=== PATIENT | male | born 1945 | race Caucasian/White ===

== ENCOUNTER 2017-10-07 18:27 | Inpatient (IN) | payer MEDICARE, OTHER ==
[~2017-10-07 18:27] MED LIST: ISOVUE-370 76%-LOCM 1 ML ONE
[2017-10-07 18:43] LABS: #Eosinphils 0.3 thou/uL (0.0-0.7); #Lymphocytes 2.5 thou/uL (1.20-3.40); #Monocytes 1.1 thou/uL (0.11-0.59); %Basophils 0.4 % (0.0-1.0); %Eosinophils 2.6 % (0.0-10.0); %Lymphocytes 22.6 % (21.0-51.0); %Monocytes 9.6 % (0.0-10.0); %Neutrophils 64.7 % (42.0-75.0); Mean Corpuscular HGB CONC 34.1 g/dL (32.0-36.0); Mean Corpuscular Hemoglobin 32.2 pg (27.0-31.0); Mean Corpuscular Volume 94.5 fl (80.0-94.0); Mean Platelet Volume 8.1 fL (7.4-10.4); Platelet Count 245 thou/uL (130-400); RBC Distribution Width 11.9 % (11.5-14.5); Red Blood Cell (RBC) Count 4.65 mill/uL (4.70-6.10); White Blood Cell (WBC) Count 10.9 thou/uL (4.8-10.8)
[2017-10-07 18:50] LABS: INR-International Normal Ratio 1.1; PTT 32.5 SEC (22.9-36.1); Prothrombin Time 14.5 SEC (12.0-14.7)
[2017-10-07] MEDS ORDERED: Labetalol HCl 100 MG/20 ML VIAL ONE (18:52)
[2017-10-07 18:56] LABS: ALT (SGPT) 24 U/L (8-55); AST (SGOT) 22 U/L (5-34); Albumin 3.9 g/dL (3.4-4.8); Alkaline Phosphatase 72 U/L (40-150); Anion Gap 12 mmol/L (10-20); BUN (Urea Nitrogen) 20 mg/dL (8.4-25.7); Bilirubin, Total 0.3 mg/dL (0.2-1.2); Calc. Creatinine Clearance 0 mL/min (70-130); Calcium 9.2 mg/dL (7.8-10.44); Carbon Dioxide 26 mmol/L (23-31); Chloride 102 mmol/L (98-107); Estimated GFR-MDRD 66; Globulin 3.3 g/dL (2.4-3.5); Glucose 150 mg/dL (83-110); Protein, Total 7.2 g/dL (5.8-8.1); Sodium 136 mmol/L (136-145)
[2017-10-07 18:59] LABS: CKMB 2.9 ng/mL (0-6.6); Troponin I Less than 0.010 ng/mL (< 0.028)
--- NOTE | 2017-10-07 19:26 | CT ---
CT OF BRAIN PERFORMED WITHOUT CONTRAST ENHANCEMENT: 10/07/17 HISTORY: Left sided weakness. COMPARISON: None. There is moderate ventricular prominence which is greater than the degree of sulcal prominence and ra ises the possibility of normal pressure hydrocephalus. I do not see any signs of acute infarct. No bl eed or mass effect. The mastoid air cells and visualized sinuses are clear. IMPRESSION: 1. No acute intracranial abnormalities. 2. Findings raise the possibility of normal pressure hydrocephalus. Findings were telephoned to Dr. Pozo at 1840 hours. POS: [facility]
--- NOTE | 2017-10-07 20:19 | CT ---
CT ANGIO OF HEAD AND NECK PERFORMED WITH INTRAVENOUS CONTRAST ENHANCEMENT WITH 3D RECONSTRUCTIONS: 10/07/17 HISTORY: Left sided weakness. Lung apices show some emphysematous change. No infiltrative process. Thyroid gland is normal in size. No significant jugular chain adenopathy. Parotid and submandibular glands are normal. Parapharyngeal spaces are clear. The CT angio of the neck shows a focal area of soft plaque formation in the more distal left common c arotid artery. This narrows the common carotid artery by approximately 50% in this segment. The plaqu e extends over approximately 1.7 cm segment of the left common carotid artery. There is a separate or igin of the left common carotid artery from the aortic arch. There is less than 50% narrowing by NASC ET criteria of the left internal carotid artery at its origin with calcified plaque formation. Some very mild narrowing of the external carotid arteries seen. On the right side, the common internal and external carotid arteries show no areas of any significant stenosis. There is calcified plaque at the origin of the internal carotid artery. Vertebral artery is fairly codominant. The right is slightly larger than the left. There appears to b e some mild narrowing near the origin of the left vertebral artery. Intracranially, I do not see any signs of any aneurysm or any intraluminal thrombus in the A1 or M1 s egments. Filling of the peripheral vessels is fairly symmetric. IMPRESSION: 1. Soft plaque formation in the left common carotid artery in its mid to distal portion over stephy roximately a 1.7 cm segment with some mild narrowing of approximately 50%. There is less than 50% nikolas rowing in the left internal carotid artery at its origin by NASCET criteria. 2. No significant stenosis of the right internal carotid artery. 3. No evidence of any thrombus in the A1 or M1 segments. 4. Findings telephoned to Dr. Pozo at 1900 hours. POS: [facility]
[2017-10-07 21:39] VITALS: BMI 29.7
--- NOTE | 2017-10-07 21:47 | PDOC.FPRHP ---
- History of Present Illness Chief Complaint: left sided weakness, difficulty walking, high blood pressure History of Present Illness: 72 yo M w/ PMH of HTN and cad presented via ems for evaluation of left sided weakness. Pt reports symptoms started around noon today and persisted until approx 6pm, since that time he reports the symptoms have improved. Symptoms include left lower extremity weakness, difficulty walking and left hand weakness. He Denies cp, sob, nvdc, numbness, tingling, headache, changes in vision, slurred speech and facial droop. He was prescribed an YIN-i for his HTN ; however, family reports he has not been taking his medications. He reports his BP normally ranges in the 140s systolic, but admits his home BP cuff has not been working. Importantly, family notes that he has had the LLE/abnormal gait findings for approx 2 months, but more noticeable over last 1.5 weeks. Additionally, the family notes that he has reportedly made inappropriate comments at times, which is not his usual self and seems more forgetful. CT of the brain done in the ED was negative for any intracranial bleed and the CTA head and neck was also negative, but here were findings concerning for possible normal pressure hydrocephalus. BP was found to be elevated @ 244/88 and responded to IV labetolol. Pt reports social alcohol use and denies drug use. PCP: Rosemary in [place], [place]- [facility] call admission Code status: Full code ED Course: labetolol IVP 20mg X2 - Allergies/Adverse Reactions Allergies Allergy/AdvReac Type Severity Reaction Status Date / Time Penicillins Allergy Rash Verified 10/07/17 21:47 Sulfa (Sulfonamide Allergy Rash Verified 10/07/17 21:47 Antibiotics) - Home Medications Medication Instructions Recorded Confirmed Type Aspirin [Aspirin Chewable] 81 mg PO DAILY 10/07/17 10/07/17 History Ezetimibe/Simvastatin [Vytorin] 0.5 tablet PO Q2DAYS 10/07/17 10/07/17 History Omeprazole 20 mg PO HS 10/07/17 10/07/17 History Ramipril [Altace] 10 mg PO DAILY 10/07/17 10/07/17 History - History PMHx: HTN, CAD, HLD, prediabetes PSHx: Coronary stent placement 2003, tonsillectomy FHx: Brother - [place] at 50. Social: Previous smoker 30 pack year history, social alcohol, denies drug use - Review of Systems General: denies: fever/chills, weight/appetite/sleep changes, fatigue Eyes: denies: eye pain, vision changes ENT: reports: nasal congestion. denies: rhinorrhea Respiratory: reports: congestion. denies: cough, shortness of breath, exercise intolerance Cardiovascular: reports: edema. denies: chest pain, palpitation Gastrointestinal: denies: nausea, vomiting, diarrhea, constipation, abdominal pain, GI bleeding Genitourinary: reports: other (urgency). denies: incontinence, dysuria Skin: denies: rashes, jaundice Musculoskeletal: denies: pain, tenderness, stiffness, arthritis/arthralgias Neurological: reports: weakness. denies: numbness, syncope, seizure - Vital signs BP: 245/88 HR: 78 RR: 18 Tmax: 98.1 Pox: 99% on RA Wt: 92Kg - Physical Exam Constitutional: NAD, awake, alert and oriented, well developed HEENT: normocephalic and atraumatic, PERRLA, EOMI, no scleral icterus, grossly normal vision, TM's clear and intact, grossly normal hearing, MMM, oropharynx clear Neck: supple, trachea midline, no LAD, no JVD, no thyromegaly, no bruits Chest: no-tender to palpation, no lesions Heart: RRR, normal S1/S2, no murmurs/rubs/gallops, pulses present, other (1+ pitting edema) Lungs: CTAB, no respiratory distress, good air movement, no rales/rhonchi, no wheezing, no retractions Abdomen: soft, non-tender, bowel sounds present, no masses/distention Musculoskeletal: normal structure, normal tone Neurological: CN II-XII intact, normal sensation, DTRs 2+, other (Strength b/l UE and LE 5/5 throughout. Rapid alternating movements abnormal on the left. Gait is unsteady, wide based, with short steps/strides) Skin: no rash/lesions, capillary refill <2 seconds, no jaundice Heme/Lymphatic: no purpura, no petechia Psychiatric: other FMR H&P: Results - Labs Result Diagrams: 10/08/17 04:14 10/08/17 04:14 Lab results: WBC 10.9 thou/uL (4.8-10.8) H 10/07/17 18:31 Hgb 15.0 g/dL (14.0-18.0) 10/07/17 18: Hct 43.9 % (42.0-52.0) 10/07/17 18: MCV 94.5 fl (80.0-94.0) H 10/07/17 18: Plt Count 245 thou/uL (130-400) 10/07/17 18: Neutrophils % 64.7 % (42.0-75.0) 10/07/17 18: Sodium 136 mmol/L (136-145) 10/07/17 18: Potassium 4.0 mmol/L (3.5-5.1) 10/07/17: Chloride 102 mmol/L (98-107) 10/07/17: Carbon Dioxide 26 mmol/L (23-31) 10/07/17 18: BUN 20 mg/dL (8.4-25.7) 10/07/17: Creatinine 1.09 mg/dL (0.6-1.3) 10/07/17: Glucose 150 mg/dL (83-110) H 10/07/17 18: Calcium 9.2 mg/dL (7.8-10.44) 10/07/17: Total Bilirubin 0.3 mg/dL (0.2-1.2) 10/07/17 18: AST 22 U/L (5-34) 10/07/17: ALT 24 U/L (8-55) 10/07/17: Alkaline Phosphatase 72 U/L (40-150) 10/07/17 18: Creatine Kinase 130 U/L (30-200) 10/07/17 18: CK-MB (CK-2) 2.9 ng/mL (0-6.6) 10/07/17 B-Natriuretic Peptide 57.5 pg/mL (0-100) 10/07/17 18: Serum Total Protein 7.2 g/dL (5.8-8.1) 10/07/17: Albumin 3.9 g/dL (3.4-4.8) 05/09/18 18:31 - EKG Interpretation EKG: NSR, nonspecific ST changes - Radiology Interpretation CT scan - head Status: report reviewed by me (No evidence for acute intracranial process, concern for normal pressure hydrocephalus. CTA showed no embolic/ischemic areas. ) FMR H&P: A/P - Problem List (1) TIA (transient ischemic attack) Current Visit: Yes Status: Acute (2) Hypertension Current Visit: Yes Status: Acute Priority: High Code(s): I10 - ESSENTIAL ( PRIMARY) HYPERTENSION Qualifiers: Hypertension type: unspecified Qualified Code(s): I10 - Essential (primary ) hypertension (3) Normal pressure hydrocephalus Current Visit: Yes Status: Suspected Code(s): G91.2 - (IDIOPATHIC) NORMAL PRESSURE HYDROCEPHALUS (4) CAD (coronary artery disease) Current Visit: Yes Status: Chronic Code(s): I25.10 - ATHSCL HEART DISEASE OF [place] CORONARY ARTERY W/O ANG PCTRS Qualifiers: Associated angina: without angina - Plan 1) TIA: vs acute cerebrovascular syndrome vs htn emergency. Pt to be admitted to the [facility]. Pt had new focal deficit of the left hand; however, ct angio and ct were negative for occlusion or acute intracranial bleed. BP in the ER was highest recorded value of 245 systolic and 104 diastolic. Pt BP was reduced by 5 -15% MAP with IV labetolol. We will cont IV labetalol to be given with systolic BP >200. Overall clinically, pt has 5/5 strength in b/l upper and lower extremities, nonetheless we will continue neuro checks q4hr, consult pt/ot/ speech for eval/treat. Bedside dysphagia screen. Asa, statin. Check FLP, Mag, Phos, TSH. AM CBC and BMP. 2)HTN: Chronic and pt medically non-compliant. Unsure of pts baseline BP although he reports h/o 140s systolic. For now we will allow for some permissive htn and slowly taper pts MAP. Labetalol prn for systolic bp >200. Hold home medications for now. 3)CAD: s/p stent in 2003. Trend troponins (initial trop negative). Daily statin. 4)Concern for normal pressure hydrocephalus: pt ct finding s are concerning for NPH. He does have gait instability and some recent cognitive changes per the family. He reports some urinary urgency, but denies incontinence. The gait disturbance have been present for approx 2 months. Neuro has been consulted, appreciate recommendations. 5)PPX: SCDs, Pepcid for DVT and GI ppx, respectively 6) Code status: Full code. Spoke with pt regarding code status, wishes to be full code. Disposition/LOS: >/= 2 days. Stable. FMR H&P: Upper Level - Pertinent history 72 yo CM with PMHx HTN, HLD, CAD s/p stent x1, and likely medication noncompliance presented to ED via EMS for L sided weakness. For 5-6 hours [employer]CR[employer], pt endorsed noticing that his left foot was dragging when he walked. He states this was a new finding, although pts brother says he has been doing this at least the past 3 months. Pt also endorsed new L hand weakness with difficulty holding objects or opening his hand. BP in ED was 242/109. Denied other symptoms except chest congestion and allergic sequelae. Denied dizziness, blurry vision, or facial droop. Pt takes meds for BP although has no current working cuff and apparently has months meds sitting on his kitchen table just discovered by his brother. Pt endorses BPs typically 140-150s although not checking currently. Pt lives alone. PCP is in [place] Dr. Riley. Brain CT showed enlarged ventricles with suggestion of NPH. Pts family endorse changing in mentation with memory issues, overall cognitive slowing, and recent inappropriate sexual remarks that seem out of character. Pt denies urinary complaints although had sudden urge to void requiring us to pause the exam. Pt denies having overall weakness or recent changes in walking except for today, which does not agree with familys story. - Pertinent findings Gen: alert, oriented x4, NAD CV: RRR, no m/r/g Lungs: CTAB, no rales/rhonchi Abd: obese, NT, mildly distended with tympanitic percussion suggesting gas- filled pattern; no rebound/guarding Ext: 1+ BLE edema distal to knees MSK: normal structure and tone Neuro: normal patellar reflexes, normal sensation, decreased rapid-alternating movements on L, CN 2-12 intact, strength 5/5 bilateral extremities, slowed gait with small steps taken and unsteady when turning 180 degrees; pt had great difficulty pushing himself up in bed which appears to reflect overall decrease in strength although muscle strength testing normal; failed Romberg bilaterally as unable to stand on either foot even with eyes open - Plan Date/Time: 10/07/172131 1. Acute cerebrovascular syndrome vs HTN emergency. Diagnostic challenge as slightly different approach to treatment. After further discussion with family, dragging of L leg may be more chronic although possible became more pronounced today. L hand deficit appears new finding and resolved soon after arriving to ED. Unclear whether resolved after treating severely elevated BP (249/109) or spontaneously. Negative head/neck CTA for stroke findings. Dr. Alcala consulted from ED who did not recommend Tpa due to uncontrolled BPs as well as minimal NIH score. Recommended treating BP with IV labetalol only rather than drip in CCU. Will treat more as HTN emergency with only sign of end-organ damage the acute neuro findings that are resolving. Goal BP is MAP 20-25% < initial MAP; around 190-200 for 24 hours. Await neurology recs about MRI. Repeat neuro exam this evening. PT/OT/speech consult. ASA, statin. Check FLP, TSH, trops. Neck CTA showed no treatable stenosis. Admit to IMCU for expected 1-2 day stay. 2. HTN. Appears noncompliant after discussion with family. May be closer to baseline than initially suspected. Slow decrease in BP over time. Restart home med after 24 hours. 3. Hydrocephalus. Suggested from brain CT. NPH could be at play. After hx from pts family, he appears to have had gait issues for a few months at least. Also felt to have semi-recent cognitive impairment including inappropriate sexual remarks and decreased executive function. Denies urinary complaints but may have urinary urgency components based on need to urinate suddenly in room during exam. Dr. Alcala has been consulted so appreciate his opinion on the matter. May be better served by outpt workup. MRI more specific but defer to neuro if desired. PT/OT eval/tx. 4. HLD. Check FLP. May expose noncompliance. Pt has difficulty taking statins and has been tried on multiple agents. Endorses Vytorin as most recent although Crestor also mentioned. 5. CAD s/p stent x1. Continue ASA. YIN-I restarted in 24 hours. Unclear if beta- basil used. Await accurate med list from family. No chest pain. 6. Medication noncompliance. See above. Pt endorses compliance but lives alone and family discovered stockpile of unused meds at home today. May need HH. Further discussions needed. I, Riley Vicente, have evaluated this patient and agree with findings/plan as outlined by internet marketing assistant resident. Pertinent changes/additions are listed here. Attending Addendum - Attending Addendum Date/Time: 10/07/172142 I personally evaluated the patient and discussed the management with Dr. Dougherty and Dr. Vicente I agree with the History, Examination, Assessment and Plan documented above with any addition or exceptions noted below. 72 yo male with history of CAD presents for evaluation of left foot drop. Patient reports recent left foot drop and hand clumsiness. Family members in room note subacute issues with gait, cognition, and foot drop but more concern with findings today. Patient reports weakness as well. On exam strength 5/5 but difficulty with rapid alternating movement. Difficulty with turning and has wide base gait. Labs reviewed. CT negative for thrombotic or hemorrhagic stroke. Will admit to stroke unit for rule out. Rule out CVA: CTA negative for significant ischemic or hemorrhagic CVA. Continue to monitor. New findings have now resolved. Likely TIA at this time. HTN Emergency: Will decrease BP by 20%. Patient has not been taking medication at home due to subacute neurological issues. Restart home meds in AM. Due to risk of possible CVA will treat with prn medications overnight. Normal pressure hydrocephalus: Likely etiology of presenting symptoms. Neurology consulted from ER. Will need outpatient follow up. Consider MRI in AM. Restart home meds and adjust as needed. Evaluate primary and secondary prevention. Glenn
[2017-10-07] MEDS ORDERED: HYDROcodone/Acetaminophen 5/325 mg Tablet PO PRN ×2 (21:48)
[2017-10-07] MEDS ORDERED: Ondansetron HCl/PF 4 MG/2 ML Vial IVP PRN (23:25)
[2017-10-07] MEDS ORDERED: Calcium Carbonate 500 MG ChewTAB PO PRN (23:25)
[2017-10-07] MEDS ORDERED: Acetaminophen 325 MG TAB PO PRN (23:25)
[2017-10-07] MEDS ORDERED: Aspirin 81 mg Enteric Coated Tablet PO SCH (23:45)
[2017-10-07 23:53] LABS: Magnesium 2.1 mg/dL (1.6-2.6); Phosphorus 2.5 mg/dL (2.3-4.7)
[2017-10-08 01:06] LABS: Troponin I 0.022 ng/mL (< 0.028)
[2017-10-08] MEDS: Labetalol HCl 100 MG/20 ML VIAL SLOW IVP PRN (02:12)
[2017-10-08] MEDS ORDERED: Calcium Carbonate 500 MG ChewTAB PO PRN (04:29)
[2017-10-08 05:09] LABS: #Basophils 0.1 thou/uL (0.0-0.2); #Eosinphils 0.3 thou/uL (0.0-0.7); #Lymphocytes 2.2 thou/uL (1.20-3.40); #Monocytes 1.5 thou/uL (0.11-0.59); #Neutrophils 7.6 thou/uL (1.40-6.50); %Basophils 0.9 % (0.0-1.0); %Eosinophils 2.9 % (0.0-10.0); %Lymphocytes 18.7 % (21.0-51.0); %Neutrophils 64.6 % (42.0-75.0); Hemoglobin 14.8 g/dL (14.0-18.0); Mean Corpuscular HGB CONC 33.4 g/dL (32.0-36.0); Mean Corpuscular Hemoglobin 31.9 pg (27.0-31.0); Mean Corpuscular Volume 95.6 fl (80.0-94.0); Mean Platelet Volume 8.5 fL (7.4-10.4); Platelet Count 244 thou/uL (130-400); RBC Distribution Width 12.1 % (11.5-14.5); Red Blood Cell (RBC) Count 4.63 mill/uL (4.70-6.10); White Blood Cell (WBC) Count 11.7 thou/uL (4.8-10.8)
[2017-10-08 05:27] LABS: Anion Gap 10 mmol/L (10-20); BUN (Urea Nitrogen) 16 mg/dL (8.4-25.7); Calc. Creatinine Clearance 86 mL/min (70-130); Calcium 9.6 mg/dL (7.8-10.44); Carbon Dioxide 28 mmol/L (23-31); Cardiac Risk 5.5 (Less than 4.5); Chloride 103 mmol/L (98-107); Cholesterol 191 mg/dl (< 200 Desired); Estimated GFR-MDRD 74; Glucose 112 mg/dL (83-110); HDL Cholesterol 35 mg/dL (>60 Neg Risk); LDL Cholesterol, Calculated 129 mg/dL; Potassium 3.7 mmol/L (3.5-5.1); Sodium 137 mmol/L (136-145); Triglycerides 133 mg/dL (Less than 150)
--- NOTE | 2017-10-08 06:10 | PDOC.FM ---
- Subjective Subjective: Mr. Sullivan is a seen at bedside this morning. He states that he is doing well. He states that both the left UE numbness and tingling have resolved and the left lower extremity weakness feels like it has improved. He denies any acute events overnight. He denies any fever, chills, vision changes, headache, vision changes, chest pain, dyspnea. - Objective MAR Reviewed: Yes Vital Signs & Weight: Vital Signs (12 hours) Temp Pulse Resp BP Pulse Ox 10/08/17 05:09 168/74 H 10/08/17 04:19 188/77 H 10/08/17 03:50 98.6 F 59 L 18 186/81 H 99 10/08/17 03:05 188/87 H 10/08/17 02:12 61 10/08/17 02:09 61 200/82 H 10/08/17 01:23 184/77 H 10/08/17 00:57 202/79 H 10/07/17 23:57 98.2 F 62 19 10/07/17 23:49 98.2 F 62 19 99 10/07/17 23:15 189/90 H I&O: 10/06/17 10/07/17 10/08/17 06:59 06:59 06:59 Output Total 720 Balance -720 Result Diagrams: 10/08/17 04:14 10/08/17 04:14 <Bridger Vela - Last Filed: 10/08/17 06:43> - Objective Vital Signs & Weight: Vital Signs (12 hours) Temp Pulse Resp BP Pulse Ox 10/08/17 07:54 98.3 F 65 20 174/78 H 99 10/08/17 05:09 168/74 H 10/08/17 04:19 188/77 H 10/08/17 03:50 98.6 F 59 L 18 186/81 H 99 10/08/17 03:05 188/87 H 10/08/17 02:12 61 10/08/17 02:09 61 200/82 H 10/08/17 01:23 184/77 H 10/08/17 00:57 202/79 H 10/07/17 23:57 98.2 F 62 19 10/07/17 23:49 98.2 F 62 19 99 10/07/17 23:15 189/90 H I&O: 10/07/17 10/08/17 10/09/17 06:59 06:59 06:59 Output Total 720 Balance -720 Result Diagrams: 10/08/17 04:14 10/08/17 04:14 <LynnPrem Sravani - Last Filed: 10/08/17 10:37> Phys Exam - Physical Examination Constitutional: NAD HEENT: moist MMs, sclera anicteric Neck: no JVD, supple, full ROM Respiratory: no wheezing, no rales, no rhonchi, clear to auscultation bilateral Cardiovascular: RRR, no significant murmur Gastrointestinal: soft, non-tender, no distention, positive bowel sounds Musculoskeletal: no edema, pulses present Neurological: non-focal, normal sensation, moves all 4 limbs Psychiatric: normal affect, A&O x 3 Skin: no rash, normal turgor <Bridger Vela - Last Filed: 10/08/17 06:43> Dx/Plan (1) Hypertension Code(s): I10 - ESSENTIAL (PRIMARY) HYPERTENSION Status: Acute QualifierTitle: Hypertension type: unspecified Qualified Code(s): I10 - Essential (primary) hypertension (2) TIA (transient ischemic attack) Status: Acute (3) CAD (coronary artery disease) Code(s): I25.10 - ATHSCL HEART DISEASE OF [place] CORONARY ARTERY W/O ANG PCTRS Status: Chronic QualifierTitle: Associated angina: without angina (4) Normal pressure hydrocephalus Code(s): G91.2 - (IDIOPATHIC) NORMAL PRESSURE HYDROCEPHALUS Status: Suspected - Plan Plan: 1) TIA: - vs acute cerebrovascular syndrome vs htn emergency - Neuro consulted in ED, appreciate recs - Neuro recommended against TPA in ED due to elevated pressures and low NIH scale - Component of history makes it appears that some symptoms are chronic - New left UE weakness resolved prior to arrival in the ED - Allowing for permissive HTN and treating BPs with IV labetalol at this time. - Neuro to decide if patient should have brain MRI - Continue ASA, statin, neuro checks, pt/ot/speech 2)HTN: - Chronic and pt medically non-compliant. Unsure of pts baseline BP although he reports h/o 140s systolic. For now we will allow for some permissive htn and slowly taper pts MAP. Labetalol prn for systolic bp >200. Hold home medications for now. (3) CAD - s/p stent in 2003. Troponins negative - Continue statin 4)Concern for normal pressure hydrocephalus: - CT findings are concerning for NPH. He does have gait instability and some recent cognitive changes per the family. He reports some urinary urgency, but denies incontinence. The gait disturbance have been present for approx 2 months. - Neuro has been consulted, appreciate recommendations. <Bridger Vela - Last Filed: 10/08/17 06:43> Attending Addendum - Attending Addendum Date/Time: 10/08/17 0943 I personally evaluated the patient and discussed the management with Dr. Vela. I agree with the History, Examination, Assessment and Plan documented above with any addition or exceptions noted below. Patient reports continued improvement in LUE neurologic function. His BP continues to be elevated but still at our permissive HTN goal. Concern for TIA versus CVA versus HTN emergency (resolved). Neurology on board and appreciate their recs. We will be obtaining MRI today to further evaluate for permanent defect. We will initiate blood pressure control today with Coreg and Ramipril ( home med). There is also concern for possible NPH in this patient and will await neurology input as well as therapy services. Initiate statin therapy and anti platelet therapy. He should be stable for transfer from [facility] to Stroke unit at this time. <Prem Lynn - Last Filed: 10/08/17 10:37>
[2017-10-08 06:29] LABS: Troponin I 0.025 ng/mL (< 0.028)
[2017-10-08 07:58] LABS: CKMB 2.5 ng/mL (0-6.6); Troponin I 0.012 ng/mL (< 0.028)
[2017-10-08] MEDS: Famotidine 20 MG TAB PO SCH ×2 (09:00→20:46)
[2017-10-08] MEDS: Aspirin 81 mg Enteric Coated Tablet PO SCH (09:01)
[2017-10-08] MEDS ORDERED: Gadobenate Dimeglumine 529 MG/1 ML (20ML VIAL) ONE (11:13)
[2017-10-08] MEDS: Lorazepam 0.5 MG TAB PO PRN (15:14)
--- NOTE | 2017-10-08 15:56 | MRI ---
MRI BRAIN WITH AND WITHOUT GADOLINIUM CONTRAST: HISTORY: Left-sided weakness. TIA. FINDINGS: There is no evidence of acute intracranial hemorrhage or infarct. No mass effect, shift of midline s tructures, or abnormal areas of contrast enhancement. Chronic ischemic small vessel disease is appar ent at the shannan and periventricular white matter. Ventricles are diffusely dilated in proportion to the degree of peripheral atrophy. IMPRESSION: 1. Communicating hydrocephalus. Clinical correlation regarding other signs and symptoms of normal-p ressure hydrocephalus is required. 2. No other acute intracranial abnormalities are demonstrated. POS: [facility]
[2017-10-08] MEDS: Carvedilol 3.125 MG TAB PO SCH (16:40)
[2017-10-08] MEDS: Atorvastatin Calcium 40 MG TAB PO SCH (20:46)
--- NOTE | 2017-10-09 01:53 | CON ---
DATE OF CONSULTATION: 10/08/2017 REFERRING PROVIDER: Bridger Vela MD REASON FOR CONSULTATION: Gait imbalance, questionable NPH. HISTORY OF PRESENT ILLNESS: Mr. Sullivan is a pleasant 72-year-old male who has been concer silvana for evaluation of gait imbalance difficulty and rule out NPH. Apparently, the patient had presen maria guadalupe on yesterday after he started having left upper and lower extremity weakness along with numbness and tingling on the left side. On arrival to the emergency room, his blood pressure was noted to be significantly elevated. His symptoms did resolve after coming to the emergency room. He had a CT he ad without contrast and MRI of brain done today, which showed no acute intracranial abnormality. It did show diffuse enlargement of the ventricles on both sides worrisome for NPH. On further questioni ng with the patient, he currently denies any difficulty with walking, stooped posture, shuffling gait , difficulty with memory, or difficulty with bladder control. However, after discussion with the [facility], it is noted the patient's brother had mentioned that he has been having difficulty w ith his walking and balance over the past few months. This has gradually gotten worse over time. Th ey have also noticed that his cognitive abilities are impaired. He tends to be hypersexual at times and sometimes he thinks that this does not make any sense. PAST MEDICAL HISTORY: Significant for hypertension, coronary artery disease, hyperlipidemia, diabete s. PAST SURGICAL HISTORY: Significant for coronary artery stent placement, tonsillectomy. SOCIAL HISTORY: He reports of alcohol use on social occasions. He also has a history of smoking in the past. He denies illicit drug use. CURRENT MEDICATIONS: Please review MAR. ALLERGIES: PENICILLIN and SULFA DRUGS. REVIEW OF SYSTEMS: As mentioned, which was negative. PHYSICAL EXAMINATION: VITAL SIGNS: Blood pressure 184/95, pulse of 64, temperature of 97.9, respirations of 20, O2 sats of 97% on room air. GENERAL: A well-developed, well-nourished male, in no apparent distress. RESPIRATORY: Clear to auscultation bilaterally. CARDIOVASCULAR: Regular rate and rhythm. NEUROLOGIC: Mental status: The patient is awake, alert, oriented x3. Speech and language: Fluent speech. Cranial nerves: Pupils are 3 mm and reactive. Visual rosado are intact. Extraocular muscl es are intact. No nystagmus noted. Face is symmetric. Tongue and uvula midline. Motor exam showed normal tone and bulk with 5/5 strength in both upper extremities and both lower extremities. Sensor y: Sensation is intact and symmetric. Babinski: Plantar responses flexion bilaterally. Coordinati on intact to bjorco-rnpt-vauiqa and finger tapping bilaterally. LABORATORY DATA: Reviewed, which included CBC, coag panel, CMP, lipid profile, which is significant for WBC of 11.7. Total cholesterol of 191, LDL of 129, HDL of 35, and triglycerides of 133, otherwis e unremarkable. IMAGING STUDIES: MRI of brain without contrast was reviewed, which did show diffuse enlargement of b oth ventricles. IMPRESSION: Gait imbalance difficulty, likely it could be related to normal pressure hydrocephalus. PLAN: Mr. Sullivan is a pleasant 72-year-old male who presented with initial onset of left- sided weakness, which has now improved. MRI did show no acute abnormality. It did show diffusely en larged ventricles suggestive of NPH. I have discussed with the patient and explained that the way to diagnose NPH is by doing a high volume lumbar puncture, which is being monitored by physical therapy before and after the lumbar puncture. I explained that if he does have NPH, then the only available treatment is ventriculoperitoneal shunt placement. At this time, I would recommend obtaining a lumb ar puncture. This lumbar puncture has to be done in conjunction with the physical therapy and is to evaluate the patient before and after the lumbar puncture to see if there is any improvement in the g ait and balance after undergoing high-volume lumbar puncture; if he does have abnormality on high-vol ume lumbar puncture, then he will benefit from evaluation by neurosurgery for their recommendations.
[2017-10-09] MEDS ORDERED: hydrALAZINE 20 MG/ML VIAL SLOW IVP PRN (02:56)
[2017-10-09 04:59] LABS: #Basophils 0.1 thou/uL (0.0-0.2); #Eosinphils 0.4 thou/uL (0.0-0.7); #Lymphocytes 2.3 thou/uL (1.20-3.40); #Neutrophils 6.4 thou/uL (1.40-6.50); %Basophils 0.6 % (0.0-1.0); %Lymphocytes 22.3 % (21.0-51.0); %Monocytes 10.1 % (0.0-10.0); Hemoglobin 14.8 g/dL (14.0-18.0); Mean Corpuscular HGB CONC 33.6 g/dL (32.0-36.0); Mean Corpuscular Hemoglobin 31.8 pg (27.0-31.0); Mean Corpuscular Volume 94.7 fl (80.0-94.0); Mean Platelet Volume 7.8 fL (7.4-10.4); Platelet Count 239 thou/uL (130-400); RBC Distribution Width 12.1 % (11.5-14.5); Red Blood Cell (RBC) Count 4.65 mill/uL (4.70-6.10); White Blood Cell (WBC) Count 10.1 thou/uL (4.8-10.8)
[2017-10-09 05:18] LABS: Anion Gap 12 mmol/L (10-20); BUN (Urea Nitrogen) 16 mg/dL (8.4-25.7); Calc. Creatinine Clearance 83 mL/min (70-130); Calcium 9.6 mg/dL (7.8-10.44); Carbon Dioxide 27 mmol/L (23-31); Chloride 102 mmol/L (98-107); Estimated GFR-MDRD 72; Glucose 107 mg/dL (83-110); Potassium 3.9 mmol/L (3.5-5.1); Sodium 137 mmol/L (136-145)
--- NOTE | 2017-10-09 07:00 | PDOC.FM ---
- Subjective Subjective: Kenneth Sullivan seen at bedside this morning. Last night, he had a fall when ambulating, fell backwards and landed on his buttocks, no head trauma. He also had urinary incontinence at that time. He denies any issues this morning. Denies headache, weakness, focal deficits, chest pain, dyspnea. - Objective MAR Reviewed: Yes Vital Signs & Weight: Vital Signs (12 hours) Temp Pulse Resp BP Pulse Ox 10/09/17 00:00 98.3 F 58 L 16 161/79 H 95 10/08/17 22:40 98.0 F 60 16 185/86 H 95 10/08/17 20:00 97.9 F 64 16 97 10/08/17 19:20 97.9 F 64 16 148/86 H 97 Weight Admit Weight 91.172 kg Weight 91.444 kg I&O: 10/07/17 10/08/17 10/09/17 06:59 06:59 06:59 Intake Total 1300 Output Total 720 750 Balance -720 550 Result Diagrams: 10/09/17 04:32 10/09/17 04:32 <Bridger Vela - Last Filed: 10/09/17 08:24> - Objective Vital Signs & Weight: Vital Signs (12 hours) Temp Pulse Resp BP Pulse Ox 10/09/17 08:00 98.4 F 81 18 95 10/09/17 07:00 98.4 F 81 18 179/102 H 94 L 10/09/17 06:00 98.0 F 62 18 174/86 H 97 10/09/17 04:00 97.9 F 64 18 175/83 H 97 10/09/17 00:00 98.3 F 58 L 16 161/79 H 95 10/08/17 22:40 98.0 F 60 16 185/86 H 95 Weight Admit Weight 91.172 kg Weight 91.444 kg I&O: 10/08/17 10/09/17 10/10/17 06:59 06:59 06:59 Intake Total 1600 Output Total 720 1400 Balance -720 200 Result Diagrams: 10/09/17 04:32 10/09/17 04:32 <Prem Lynn - Last Filed: 10/09/17 09:55> Phys Exam - Physical Examination Constitutional: NAD HEENT: moist MMs, sclera anicteric Neck: no JVD, supple, full ROM Respiratory: no wheezing, no rales, no rhonchi, clear to auscultation bilateral Cardiovascular: RRR, no significant murmur Gastrointestinal: soft, non-tender, no distention Musculoskeletal: no edema, pulses present Neurological: non-focal, normal sensation, moves all 4 limbs slow, difficult with movement Psychiatric: normal affect, A&O x 3 Skin: no rash, normal turgor <Bridger Vela - Last Filed: 10/09/17 08:24> Dx/Plan (1) Hypertension Code(s): I10 - ESSENTIAL (PRIMARY) HYPERTENSION Status: Acute QualifierTitle: Hypertension type: unspecified Qualified Code(s): I10 - Essential (primary) hypertension (2) TIA (transient ischemic attack) Status: Acute (3) CAD (coronary artery disease) Code(s): I25.10 - ATHSCL HEART DISEASE OF [place] CORONARY ARTERY W/O ANG PCTRS Status: Chronic QualifierTitle: Associated angina: without angina (4) Normal pressure hydrocephalus Code(s): G91.2 - (IDIOPATHIC) NORMAL PRESSURE HYDROCEPHALUS Status: Suspected - Plan Plan: 1) Normal Pressure Hydrocephalus - MRI had findings suggestive of normal pressure hydrocephalus - Pt has gait instability, urinary urgency, and family notes cognitive. - Neuro consulted, appreciate recs - Recommended large volume LP (30-35cc) with PT eval prior to and immediately after LP 2) TIA: - vs acute cerebrovascular syndrome vs htn emergency - Neuro consulted in ED, appreciate recs - Neuro recommended against TPA in ED due to elevated pressures and low NIH scale - Component of history makes it appears that some symptoms are chronic - New left UE weakness resolved prior to arrival in the ED - Starting patient on home medications to control BPs - Continue ASA, statin, neuro checks, pt/ot/speech 3)HTN: - Continue home medications. 4) CAD - s/p stent in 2003. Troponins negative - Continue statin <Bridger Vela - Last Filed: 10/09/17 08:24> Attending Addendum - Attending Addendum Date/Time: 10/09/17 0953 I personally evaluated the patient and discussed the management with Dr. Vela. I agree with the History, Examination, Assessment and Plan documented above with any addition or exceptions noted below. Patient without complaint this morning. He had a fall and episode of incontinence overnight. Neurology has evaluated patient and agrees with diagnosis of NPH. We will be attempting therapeutic drainage of CSF this morning with re-eval by PT to see if there is noted improvement. This plan has been suggested by Neurology and has been discussed with the patient. If therapeutic, may need NSGY consult to discuss NATURAL FABRICATOR drain. Blood pressures improved , but will escalate therapy today. No evidence of CVA on MRI, so his symptoms were either related to HTN emergency or TIA, or possibly a rarer complication of NPH. <Prem Lynn - Last Filed: 10/09/17 09:55>
[2017-10-09] MEDS: Famotidine 20 MG TAB PO SCH ×2 (11:13→20:31)
[2017-10-09] MEDS: Ramipril 5 MG CAP PO SCH (11:13)
[2017-10-09] MEDS: Carvedilol 3.125 MG TAB PO SCH ×2 (11:13→16:25)
[2017-10-09] MEDS: Aspirin 81 mg Enteric Coated Tablet PO SCH (11:13)
--- NOTE | 2017-10-09 13:46 | PDOC.EVN ---
Event Note - Event Note Event Note: LUMBAR PUNCTURE PROCEDURE NOTE INDICATION: Normal Pressure Hydrocephalus PROCEDURE GEOTHERMAL POWERPLANT SUPERVISOR: René ATTENDING PHYSICIAN: Shane In Attendance: Yes CONSENT: Consent was obtained from Mr. Sullivan prior to the procedure. Indications, risks , and benefits were explained at length. PROCEDURE SUMMARY: A time-out was performed. My hands were washed immediately prior to the procedure. I wore a surgical cap, mask with protective eyewear, sterile gown and sterile gloves throughout the procedure. The patient was placed in the right lateral decubitus position with help from the nursing staff. The area was cleansed and draped in usual sterile fashion using betadine scrub. Anesthesia was achieved with 1% lidocaine. A 20-gauge 3.5-inch spinal needle was placed in the L3-L4 and L4-L5 lumbar interspace. Cerebral spinal fluid was not obtained. A sterile bandaid was placed over the puncture site. The patient had no immediate complications and tolerated the procedure well. Estimated blood loss was 2 mL.
--- NOTE | 2017-10-09 16:06 | RAD ---
FLUOROSCOPIC GUIDED LUMBAR PUNCTURE: History: Normal pressure hydrocephalus. FINDINGS: After explaining the procedure and answering all questions, the lower back was prepped and draped in the usual sterile fashion. Sterile technique, buffered local anesthesia, fluoroscopic guidance and a left posterolateral L2-3 approach were used to carefully advance a 20 gauge spinal needle through the thecal sac. A total volume of 32 cc clear CSF was collected and returned with the patient. Opening p ressure was estimated at 15 cm water. Patient tolerated the procedure well and was returned in unchanged condition. IMPRESSION: Technically successful high volume lumbar puncture fluid collection. POS: [facility]
[2017-10-09] MEDS: Carvedilol 6.25 MG TAB PO SCH (16:55)
[2017-10-09] MEDS ORDERED: Carvedilol 3.125 MG TAB PO SCH (17:00)
[2017-10-09] MEDS: Atorvastatin Calcium 40 MG TAB PO SCH (20:31)
[2017-10-09] MEDS: Labetalol HCl 100 MG/20 ML VIAL SLOW IVP PRN (21:48)
[2017-10-10 05:05] LABS: #Basophils 0.1 thou/uL (0.0-0.2); #Eosinphils 0.4 thou/uL (0.0-0.7); #Lymphocytes 3.1 thou/uL (1.20-3.40); #Neutrophils 5.9 thou/uL (1.40-6.50); %Basophils 0.9 % (0.0-1.0); %Eosinophils 3.6 % (0.0-10.0); %Lymphocytes 29.6 % (21.0-51.0); %Monocytes 9.8 % (0.0-10.0); %Neutrophils 56.1 % (42.0-75.0); Hemoglobin 14.6 g/dL (14.0-18.0); Mean Corpuscular HGB CONC 34.3 g/dL (32.0-36.0); Mean Corpuscular Hemoglobin 32.5 pg (27.0-31.0); Mean Corpuscular Volume 94.8 fl (80.0-94.0); Mean Platelet Volume 8.3 fL (7.4-10.4); Platelet Count 228 thou/uL (130-400); RBC Distribution Width 12.1 % (11.5-14.5); Red Blood Cell (RBC) Count 4.51 mill/uL (4.70-6.10); White Blood Cell (WBC) Count 10.4 thou/uL (4.8-10.8)
[2017-10-10 05:22] LABS: Anion Gap 11 mmol/L (10-20); BUN (Urea Nitrogen) 17 mg/dL (8.4-25.7); Calc. Creatinine Clearance 91 mL/min (70-130); Carbon Dioxide 26 mmol/L (23-31); Chloride 104 mmol/L (98-107); Estimated GFR-MDRD 80; Glucose 106 mg/dL (83-110); Potassium 3.9 mmol/L (3.5-5.1); Sodium 137 mmol/L (136-145)
--- NOTE | 2017-10-10 05:47 | PDOC.FM ---
- Subjective Subjective: Patient is doing well this AM. He reports his LE strength is improved, but again has experienced some LUE weakness onset yesterday afternoon aroun 3pm. LUE weakness has continued through the night. Yesterday, had high pressure LP done where 32ml of CSF was drained. PT done prior to LP was comparable to PT done after LP. Blood pressure quite high overnight averaging 200's SBP. Patient reports he is agreeable to PT with but is hesitant about any inpatient PT. - Objective MAR Reviewed: Yes Vital Signs & Weight: Vital Signs (12 hours) Temp Pulse Resp BP BP Pulse Ox 10/09/17 21:48 63 205/82 H 10/09/17 20:30 64 192/80 H 10/09/17 20:00 98.6 F 63 14 94 L 10/09/17 19:55 97.5 F L 64 16 192/80 H 94 L 10/09/17 18:10 98.3 F 61 18 190/81 H 97 Weight Admit Weight 91.172 kg Weight 91.444 kg I&O: 10/08/17 10/09/17 10/10/17 06:59 06:59 06:59 Intake Total 1600 440 Output Total 720 1400 Balance -720 200 440 Result Diagrams: 10/10/17 03:40 10/10/17 03:40 <Sabina Sales - Last Filed: 10/10/17 10:25> - Objective Vital Signs & Weight: Vital Signs (12 hours) Temp Pulse Resp BP BP Pulse Ox 10/10/17 09:47 181/75 H 10/10/17 08:44 206/105 H 10/10/17 08:43 71 206/105 H 10/10/17 08:00 98.2 F 71 16 10/10/17 07:58 98.2 F 71 16 199/99 H 97 10/10/17 05:46 97.2 F L 60 18 198/70 H 98 Weight Admit Weight 91.172 kg Weight 91.444 kg I&O: 10/09/17 10/10/17 10/11/17 06:59 06:59 06:59 Intake Total 1600 440 Output Total 1400 200 Balance 200 440 -200 Result Diagrams: 10/10/17 03:40 10/10/17 03:40 <Prem Lynn R - Last Filed: 10/10/17 10:50> Phys Exam - Physical Examination Constitutional: NAD HEENT: PERRLA, moist MMs Respiratory: no wheezing, no rales, clear to auscultation bilateral Cardiovascular: RRR, no significant murmur Gastrointestinal: soft, non-tender Musculoskeletal: no edema, pulses present LE strength 5/5 bilaterally, RUE 5/5, LUE 4/5 log chain feeder strength but 5/5 biceps Psychiatric: normal affect, A&O x 3 Skin: cap refill <2 seconds <Sabina Sales - Last Filed: 10/10/17 10:25> Dx/Plan (1) Hypertension Code(s): I10 - ESSENTIAL (PRIMARY) HYPERTENSION Status: Acute QualifierTitle: Hypertension type: unspecified Qualified Code(s): I10 - Essential (primary) hypertension (2) TIA (transient ischemic attack) Status: Acute (3) CAD (coronary artery disease) Code(s): I25.10 - ATHSCL HEART DISEASE OF [place] CORONARY ARTERY W/O ANG PCTRS Status: Chronic QualifierTitle: Associated angina: without angina (4) Normal pressure hydrocephalus Code(s): G91.2 - (IDIOPATHIC) NORMAL PRESSURE HYDROCEPHALUS Status: Suspected - Plan Plan: Hypertensive Emergency vs. TIA: - Patient again with some LUE weakness, that was previously resolved when BP controlled. Likely associated with HTN emergency. CT/MRI ruled out CVA. - Prn Hydralazine and Labetalol parameters decreased for use when SBP > 180 - Add Norvasc 10mg - continue ASA, Lipitor 40mg, and PT/OT Normal Pressure Hydrocephalus - MRI findings, LP findings, and symptoms consistent with diagnosis. - Neuro following, appreciate recs - Large volume LP with PT prior and after LP showed no change in gait. According to this, patient not a good candidate for shunt placement. - Will need outpatient f/u with Neuro upon d/c. CAD - s/p stent in 2003. Troponins negative - Continue statin <Sabina Sales - Last Filed: 10/10/17 10:25> Attending Addendum - Attending Addendum Date/Time: 10/10/17 1048 I personally evaluated the patient and discussed the management with Dr. Sales. I agree with the History, Examination, Assessment and Plan documented above with any addition or exceptions noted below. Patient with no major improvements in functional status s/p high volume LP with IR yesterday. Will have PT re evaluate today due to his subjective improvement in gait. His blood pressures continue to be highly elevated despite escalation of medical therapy yesterday. Will add Norvasc today, and decrease threshold for PRN medications. HR low normal and so will defer on increase of Coreg. Resume home HCTZ. Labs stable but not stable for discharge from HTN standpoint. <Prem Lynn - Last Filed: 10/10/17 10:50>
[2017-10-10] MEDS: Famotidine 20 MG TAB PO SCH ×2 (08:43→20:03)
[2017-10-10] MEDS: Aspirin 81 mg Enteric Coated Tablet PO SCH (08:44)
[2017-10-10] MEDS: Carvedilol 6.25 MG TAB PO SCH ×2 (08:44→17:03)
[2017-10-10] MEDS ORDERED: Amlodipine 10 MG TAB PO SCH ×2 (08:45→09:00)
[2017-10-10] MEDS: Ramipril 5 MG CAP PO SCH (09:47)
[2017-10-10] MEDS: Atorvastatin Calcium 40 MG TAB PO SCH (20:02)
[2017-10-10] MEDS ORDERED: hydrALAZINE 20 MG/ML VIAL SLOW IVP PRN (22:44)
[2017-10-10] MEDS ORDERED: Labetalol HCl 100 MG/20 ML VIAL SLOW IVP PRN (22:44)
--- NOTE | 2017-10-11 01:55 | PRG ---
DATE OF SERVICE: 10/10/2017 SUBJECTIVE: Mr. Sullivan is a pleasant 72-year-old male who presented with an acute onset o f left-sided weakness that had resolved on after being admitted to the hospital. He had an MRI brain done, which showed enlarged ventricles worrisome for normal-pressure hydrocephalus. He has undergon e high-volume lumbar puncture. He was evaluated by physical therapy before and after the lumbar punc ture and according to the therapy notes, there was no improvement in his gait or walking after the hi gh-volume lumbar puncture. Patient reports that he was doing well yesterday and then yesterday, he a gain had an episode of left-sided weakness and he feels that his left-sided weakness is unchanged whe n compared to yesterday. He denies any headache, chest pain, palpitation, nausea, vomiting, lighthea dedness, or dizziness. PHYSICAL EXAMINATION: VITAL SIGNS: Blood pressure of 177/82, pulse of 63, temperature of 97.2, respirations of 16, O2 sats 95% on room air. GENERAL: Well-developed, well-nourished male in no apparent distress. RESPIRATORY: Clear to auscultation bilaterally. CARDIOVASCULAR: Regular rate and rhythm. NEUROLOGICAL: Mental status: Patient is awake, alert, oriented x3. Speech and language: Fluent sp eech. Cranial nerves: Pupils are 3 mm and reactive. Visual rosado are intact. Extraocular muscles are intact. No nystagmus noted. Face is symmetric. Motor exam showed normal tone and bulk with 4/ 5 strength in the left upper and left lower extremity. This is changed compared to my initial exam d one day before yesterday. LABORATORY DATA: Labs are reviewed, which included CBC and BMP, which is essentially unremarkable. Lumbar puncture that was done on yesterday showed opening pressure of 15 cm of water. Per physical t herapy note, there is no improvement in gait following high-volume lumbar puncture. IMPRESSION: 1. Left-sided weakness. 2. Normal pressure to large ventricles. PLAN: Mr. Sullivan is a pleasant 72-year-old male who presented with the left-sided weaknes s. His symptoms had improved initially on the admission; however, he had a spike in blood pressure a nd since then he has had noted worsening left-sided weakness that has persisted. His exam did show c hange in his strength compared to my initial evaluation, which suggested that he probably did have sm all ischemic event, possibly lacunar infarction. I have reviewed the notes from physical therapy sta jimmie that patient did not improve following high-volume lumbar puncture at this time. This may sugge st that patient may not benefit from ventricle peritoneal shunt. I would recommend obtaining MRI bra in without contrast on Thursday to see if there is any new ischemic event. He may benefit from inpatie nt rehabilitation. I would recommend starting patient on aspirin 325 mg daily. I will recommend con trolling his blood pressure with a goal of 120-140 systolic and 80-85 diastolic. Continue supportive care. Thank you for consultation.
[2017-10-11] MEDS: Lorazepam 0.5 MG TAB PO PRN (02:53)
[2017-10-11 04:48] LABS: #Basophils 0.1 thou/uL (0.0-0.2); #Eosinphils 0.3 thou/uL (0.0-0.7); #Lymphocytes 2.7 thou/uL (1.20-3.40); #Neutrophils 5.8 thou/uL (1.40-6.50); %Basophils 0.5 % (0.0-1.0); %Eosinophils 3.1 % (0.0-10.0); %Lymphocytes 27.6 % (21.0-51.0); %Monocytes 10.1 % (0.0-10.0); %Neutrophils 58.7 % (42.0-75.0); Hemoglobin 15.2 g/dL (14.0-18.0); Mean Corpuscular HGB CONC 34.3 g/dL (32.0-36.0); Mean Corpuscular Hemoglobin 32.5 pg (27.0-31.0); Mean Corpuscular Volume 94.9 fl (80.0-94.0); Mean Platelet Volume 8.5 fL (7.4-10.4); Platelet Count 246 thou/uL (130-400); RBC Distribution Width 12.1 % (11.5-14.5); Red Blood Cell (RBC) Count 4.69 mill/uL (4.70-6.10); White Blood Cell (WBC) Count 9.8 thou/uL (4.8-10.8)
[2017-10-11 05:04] LABS: Anion Gap 13 mmol/L (10-20); BUN (Urea Nitrogen) 19 mg/dL (8.4-25.7); Calc. Creatinine Clearance 99 mL/min (70-130); Calcium 9.3 mg/dL (7.8-10.44); Carbon Dioxide 24 mmol/L (23-31); Chloride 104 mmol/L (98-107); Estimated GFR-MDRD 87; Glucose 106 mg/dL (83-110); Potassium 3.8 mmol/L (3.5-5.1); Sodium 137 mmol/L (136-145)
--- NOTE | 2017-10-11 06:18 | PDOC.FM ---
- Subjective Subjective: Patient is doing well. Reports LUE weakness resolved. Still has uncoordinated walking but strength has returned. Overnight had BP in the 200's systolic again. Denies CP and SOB. - Objective MAR Reviewed: Yes Vital Signs & Weight: Vital Signs (12 hours) Temp Pulse Resp BP Pulse Ox 10/11/17 05:19 69 178/99 H 10/11/17 04:37 66 204/94 H 10/11/17 02:47 66 10/11/17 02:29 59 L 194/78 H 10/11/17 01:13 177/79 H 10/11/17 00:23 55 L 193/72 H 10/11/17 00:09 97 10/10/17 20:22 97.3 F L 58 L 18 156/75 H 97 10/10/17 20:00 97.3 F L 58 L 18 Weight Admit Weight 91.172 kg Weight 91.444 kg I&O: 10/09/17 10/10/17 10/11/17 06:59 06:59 06:59 Intake Total 1600 440 Output Total 1400 200 Balance 200 440 -200 Result Diagrams: 10/11/17 03:46 10/11/17 03:46 <Sabina Sales - Last Filed: 10/11/17 10:12> - Objective Vital Signs & Weight: Vital Signs (12 hours) Temp Pulse Resp BP BP Pulse Ox 10/11/17 08:00 97.8 F 71 18 10/11/17 07:58 71 183/77 H 10/11/17 07:57 183/77 H 10/11/17 07:56 97.8 F 71 18 183/77 H 97 10/11/17 05:19 69 178/99 H 10/11/17 04:37 66 204/94 H 10/11/17 02:47 66 10/11/17 02:29 59 L 194/78 H 10/11/17 01:13 177/79 H 10/11/17 00:23 55 L 193/72 H 10/11/17 00:09 97 Weight Admit Weight 91.172 kg Weight 91.444 kg I&O: 10/10/17 10/11/17 10/12/17 06:59 06:59 06:59 Intake Total 440 Output Total 200 Balance 440 -200 Result Diagrams: 10/11/17 03:46 05/13/18 03:46 <Prem Lynn R - Last Filed: 10/11/17 11:02> Phys Exam - Physical Examination Constitutional: NAD Respiratory: no wheezing, no rales, clear to auscultation bilateral Cardiovascular: RRR, no significant murmur Gastrointestinal: soft Musculoskeletal: no edema, pulses present Neurological: moves all 4 limbs UE and LE strength 5/5 in distal musclulature Psychiatric: normal affect, A&O x 3 <Sabina Sales - Last Filed: 10/11/17 10:12> Dx/Plan (1) Hypertension Code(s): I10 - ESSENTIAL (PRIMARY) HYPERTENSION Status: Acute QualifierTitle: Hypertension type: unspecified Qualified Code(s): I10 - Essential (primary) hypertension (2) TIA (transient ischemic attack) Status: Acute (3) CAD (coronary artery disease) Code(s): I25.10 - ATHSCL HEART DISEASE OF [place] CORONARY ARTERY W/O ANG PCTRS Status: Chronic QualifierTitle: Associated angina: without angina (4) Normal pressure hydrocephalus Code(s): G91.2 - (IDIOPATHIC) NORMAL PRESSURE HYDROCEPHALUS Status: Suspected - Plan Plan: Hypertensive Emergency vs. TIA vs. CVA. - Patient again with resolution of LUE weakness. Likely associated with HTN emergency. CT/MRI ruled out CVA with prior episode of LUE weakness. - BP remain high, goal 120-140's SBP, currently 170 SBP but overnight did have readings in the 200's systolic - Prn Hydralazine and Labetalol for use when SBP > 180 - Switch Norvasc to Procardia 60mg today - continue ASA, Lipitor 40mg, and PT/OT Normal Pressure Hydrocephalus - MRI findings, LP findings, and symptoms consistent with diagnosis. - Neuro following, appreciate recs - high pressure LP with PT prior and after LP showed no change in gait. According to this, patient not a good candidate for shunt placement. - Will need outpatient f/u with Neuro upon d/c. CAD - s/p stent in 2003. Troponins negative - Continue statin HTN - See above <Sabina Sales - Last Filed: 10/11/17 10:12> Attending Addendum - Attending Addendum Date/Time: 10/11/17 1059 I personally evaluated the patient and discussed the management with Dr. Sales. I agree with the History, Examination, Assessment and Plan documented above with any addition or exceptions noted below. Patient reports feeling well. Reports that he is aware that his blood pressure is running high and states today that it is never below 170s SBP at home. His UE weakness has once again resolved, pointing away from TIA or CVA as the cause of his symptoms. We will work again to get his blood pressures under control with changes to medical therapy. Once that is achieved, he should be stable for discharge home. <Prem Lynn R - Last Filed: 10/11/17 11:02>
[2017-10-11] MEDS: Ramipril 5 MG CAP PO SCH (07:57)
[2017-10-11] MEDS: Carvedilol 6.25 MG TAB PO SCH ×2 (07:58→17:06)
[2017-10-11] MEDS: Aspirin 325 mg Enteric Coated Tablet PO SCH (07:58)
[2017-10-11] MEDS: Famotidine 20 MG TAB PO SCH ×2 (07:58→20:43)
[2017-10-11] MEDS ORDERED: NIFEdipine XL 60 MG TAB PO SCH (09:00)
[2017-10-11] MEDS ORDERED: Polyethylene Glycol 3350 17 GM Packet PO PRN (19:21)
[2017-10-11] MEDS ORDERED: Docusate 100 MG CAP PO PRN (19:21)
[2017-10-11] MEDS: Atorvastatin Calcium 40 MG TAB PO SCH (20:43)
--- NOTE | 2017-10-12 05:34 | PDOC.FM ---
- Subjective Subjective: Kenneth Sullivan seen at bedside this morning. He is doing well, he had no acute events overnight. He has no complaints this morning. Denies any chest pain, fever, dyspnea, n/v. States that as long as he can remember he has always had high BPs and they have never been 140 or below. - Objective MAR Reviewed: Yes Vital Signs & Weight: Vital Signs (12 hours) Temp Pulse Resp BP Pulse Ox 10/12/17 04:00 98.1 F 70 20 166/68 H 96 10/12/17 00:00 97.7 F 76 20 159/76 H 95 10/11/17 20:35 97.4 F L 72 20 95 10/11/17 20:00 97.4 F L 72 20 159/80 H 95 Weight Admit Weight 91.172 kg Weight 91.444 kg I&O: 10/10/17 10/11/17 10/12/17 06:59 06:59 06:59 Intake Total 440 Output Total 200 Balance 440 -200 Result Diagrams: 10/11/17 03:46 10/11/17 03:46 Phys Exam - Physical Examination Constitutional: NAD HEENT: moist MMs, sclera anicteric Neck: no JVD, supple, full ROM Respiratory: no wheezing, no rales, no rhonchi, clear to auscultation bilateral Cardiovascular: RRR, no significant murmur Gastrointestinal: soft, non-tender, no distention Musculoskeletal: no edema, pulses present Neurological: non-focal, normal sensation, moves all 4 limbs Psychiatric: normal affect, A&O x 3 Skin: no rash, normal turgor Dx/Plan (1) Hypertension Code(s): I10 - ESSENTIAL (PRIMARY) HYPERTENSION Status: Acute Qualifiers: Hypertension type: unspecified Qualified Code(s): I10 - Essential (primary ) hypertension (2) TIA (transient ischemic attack) Status: Acute (3) CAD (coronary artery disease) Code(s): I25.10 - ATHSCL HEART DISEASE OF [place] CORONARY ARTERY W/O ANG PCTRS Status: Chronic Qualifiers: Associated angina: without angina (4) Normal pressure hydrocephalus Code(s): G91.2 - (IDIOPATHIC) NORMAL PRESSURE HYDROCEPHALUS Status: Suspected - Plan Plan: Hypertensive Emergency vs. TIA vs. CVA. - Patient again with resolution of LUE weakness. Likely associated with HTN emergency. CT/MRI ruled out CVA with prior episode of LUE weakness. - BP remain high, goal 120-140's SBP, currently 150s systolic - Prn Hydralazine and Labetalol for use when SBP > 180 - Increased Procardia to 90 mg daily - continue ASA, Lipitor 40mg, and PT/OT - Likely d/c today Normal Pressure Hydrocephalus - MRI findings, LP findings, and symptoms consistent with diagnosis. - Neuro following, appreciate recs - high pressure LP with PT prior and after LP showed no change in gait. According to this, patient not a good candidate for shunt placement. - Will need outpatient f/u with Neuro upon d/c. CAD - s/p stent in 2003. Troponins negative - Continue statin HTN - See above
[2017-10-12] MEDS ORDERED: Carvedilol 6.25 MG TAB PO SCH ×3 (08:45→17:00)
[2017-10-12] MEDS ORDERED: NIFEdipine XL 90 MG TAB PO SCH (09:00)
[2017-10-12] MEDS: Ramipril 5 MG CAP PO SCH (09:13)
[2017-10-12] MEDS: Aspirin 325 mg Enteric Coated Tablet PO SCH (09:13)
[2017-10-12] MEDS: Famotidine 20 MG TAB PO SCH (09:13)
[2017-10-12] MEDS: Carvedilol 6.25 MG TAB PO SCH (09:16)
[2017-10-12 11:44] VITALS: TEMP 97.6
[2017-10-12 11:51] VITALS: BP 202/96
--- NOTE | 2017-10-12 13:03 | DIS-2 ---
DATE OF ADMISSION: 10/07/2017 DATE OF DISCHARGE: 10/12/2017 RESIDENT: Bridger Vela M.D. ADMITTING ATTENDING: Dr. Rebecca Gibbs. DISCHARGE ATTENDING: Dr. Boris Mcclure. CONSULTATIONS 1. Dr. Alcala, Neurology on 10/08/2017. 2. Dr. Treadwell on 10/08/2017. 3. Case management on 10/09/2017. 4. PT/OT on 10/07/2017. 5. Speech therapy on 10/07/2017. PROCEDURES: 1. CT of the brain. Impression: No acute intracranial abnormalities. Findings raise the possibility of normal pressure hydrocephalus. 2. CT of the [place] angio with and without contrast. Impression: Soft plaque formation in the left common carotid artery in its mid to distal portion approximately a 1.7 cm segment with some mild narrowing of approximately 50%. No significant stenosis of the right internal carotid artery. No evidence of any thrombus in the A1 or M1 segments. 3. Brain MRI on 10/08/2017. Impression: Communicating hydrocephalus. Clinical correlation regarding other signs and symptoms of normal hydrocephalus. Normal pressure hydrocephalus as required, no other acute intracranial abnormalities are demonstrated. 4. Lumbar puncture fluoroscopy on 10/09/2017. Impression: Technically successful high volume lumbar puncture fluid collection. A 32 mL of clear CSF was collected. Opening pressure was estimated at 15 cm of water. PRIMARY DIAGNOSES: 1. Normal pressure hydrocephalus. 2. Hypertensive urgency. 3. Transient ischemic attack. SECONDARY DIAGNOSES: 1. Hypertension. 2. Coronary artery disease. DISCHARGE MEDICATIONS: Resume home medications including, 1. Vytorin 10 mg/40 mg tablet 0.5 tablet p.o. q.2 days. 2. Ramipril 10 mg p.o. daily. 3. Omeprazole 20 mg p.o. at bedtime. 4. Hydrochlorothiazide 12.5 mg p.o. daily. NEW HOME MEDICATIONS: Include, 1. Aspirin 325 mg p.o. daily. 2. Lipitor 40 mg p.o. at bedtime. 3. Calcium carbonate 500 mg p.o. q.4 hours p.r.n. 4. Carvedilol 12.5 mg p.o. b.i.d. with meals. 5. Colace 100 mg p.o. b.i.d. p.r.n. 6. Pepcid 20 mg p.o. b.i.d. 7. Procardia-XL 90 mg p.o. daily. 8. MiraLax 17 grams p.o. daily p.r.n. HISTORY OF PRESENT ILLNESS AND HOSPITAL COURSE: Kenneth Sullivan is a 72-year- old male with past medical history of hypertension, coronary artery disease, who presented to the ED via EMS for evaluation of left-sided weakness, on 2017. The patient reports symptoms that started earlier that day and lasted about 6 hours before they started to improve. Symptoms included left lower extremity weakness, difficulty walking, and left hand weakness. He denies any chest pain, shortness of breath, nausea, vomiting, diarrhea, constipation, numbness, tingling, headache, change in vision, slurred speech, or facial droop. His family reports that he has not been taking his medications regularly as they found a lot of bottles of blood pressure medications that were still completely full. The patient reports his blood pressure normally ranges in the 140s systolic, but admits that his home blood pressure cuff has not been working. Family notes that he has had left lower extremity/abnormal gait findings for approximately 2 months, more noticeable the last one and a half weeks. Additionally, the family noted that he has been making up and appropriate comments at times, which is not usual for him and he also seems to be more forgetful than normal. CT of the brain done in the ED, was negative for any intracranial bleed and CT of the head and neck was also negative, but there were findings for possible normal pressure hydrocephalus. The patient's blood pressure was also elevated to 244/88 and responded to IV labetalol. Patient reports social alcohol use and denies any drug use. Labs were fairly normal. On admission, his blood glucose was 150, his white blood cell count was 10.9. All other labs within normal limits. CK was 130. Alkaline phosphatase 72, CK- MB 2.9. BNP 57.5. EKG showed normal sinus rhythm with nonspecific ST changes. The patient was admitted for workup of TIA versus hypertensive emergency. He was admitted to the [facility] and his blood pressures were reduced by 5% to 15% of map with IV labetalol. Permissive hypertension was allowed due to CVA/TIA rule out. Blood pressures for the first 24 hours were maintained in the 180-200 range. The patient's lower extremity weakness had resolved. He was 5/5 strength in bilateral upper and lower extremities. Neuro checks were continued. Neurology was consulted. Statin was started and aspirin was started. Patient also reported urinary urgency, but denied any incontinence and he did have a gait disturbance, which was consistent clinically with normal pressure hydrocephalus. Neuro saw the patient on 10/08/2017 and recommended high volume lumbar puncture with opening pressure. This was performed by IR and a total of 32 mL fluid was taken off and had an opening pressure of 15 cm of water. Patient was evaluated by PT 2 hours prior to and immediately after the lumbar puncture, there was no significant change in his evaluation. Over the next couple days, the patient's blood pressures remained elevated and difficult to control despite adding and increasing doses of antihypertensives. Over the weekend, his weakness returned during the time period where he was having elevated blood pressures up in the 200s over 90s. Symptoms resolved after patient's blood pressure was brought back down with IV labetalol and IV hydralazine. Patient was titrated up on his home ramipril and was also started on Coreg, which was titrated up throughout his admission and procardia XL. The patient's blood pressures were more controlled on 10/12/2017, his last blood pressure was 154/82. Patient denied any weakness of the left upper or lower extremity. Neurology recommended tight blood pressure control from 120s to 140s. The patient was stable for discharge after tighter blood pressure control was maintained with instructions to follow up with his PCP as well as Neurology. The family requested a phone call day of discharge to explain case. It was discussed that Neurology did not recommend shunt for normal pressure hydrocephalus at this time because there were no improvement in symptoms with high volume lumbar puncture. It was recommended that patient's symptoms continued to be monitored closely at home and if there is a recurrence or a progressive worsening of symptoms, then follow up with neurologist is recommended. It was also explained that his symptoms of left UE and LE weakness was likely secondary to hypertensive emergency and that patient's compliance with his blood pressure medications and strict blood pressure control will be beneficial for the patient. Patient's symptoms during admission seemed to correspond with severely elevated pressures. It was recommended strongly that patient follow up with PCP within a week to reevaluate blood pressure and symptoms of weakness. Family understand what was discussed and appreciated the phone call. DISPOSITION: Stable. The patient's symptoms would likely all secondary to elevated blood pressures and normal pressure hydrocephalus. He should do well if he continues to take his blood pressure medications as directed and follows up with his primary care provider. DISCHARGE INSTRUCTIONS: 1. Location: Home. 2. Diet: Heart healthy. 3. Activity: As tolerated. 4. Followup: Follow up with primary care provider in 1-2 weeks and follow up with Dr. Alcala, Neurology in 1-2 weeks. KARLY
--- NOTE | 2017-10-12 14:03 | CT ---
CT ANGIO OF HEAD AND NECK PERFORMED WITH INTRAVENOUS CONTRAST ENHANCEMENT WITH 3D RECONSTRUCTIONS: 10/07/17 HISTORY: Left sided weakness. Lung apices show some emphysematous change. No infiltrative process. Thyroid gland is normal in size. No significant jugular chain adenopathy. Parotid and submandibular glands are normal. Parapharyngeal spaces are clear. The CT angio of the neck shows a focal area of soft plaque formation in the more distal left common c arotid artery. This narrows the common carotid artery by approximately 50% in this segment. The plaqu e extends over approximately 1.7 cm segment of the left common carotid artery. There is a separate or igin of the left common carotid artery from the aortic arch. There is less than 50% narrowing by NASC ET criteria of the left internal carotid artery at its origin with calcified plaque formation. Some very mild narrowing of the external carotid arteries seen. On the right side, the common internal and external carotid arteries show no areas of any significant stenosis. There is calcified plaque at the origin of the internal carotid artery. Vertebral artery is fairly codominant. The right is slightly larger than the left. There appears to b e some mild narrowing near the origin of the left vertebral artery. Intracranially, I do not see any signs of any aneurysm or any intraluminal thrombus in the A1 or M1 s egments. Filling of the peripheral vessels is fairly symmetric. IMPRESSION: 1. Soft plaque formation in the left common carotid artery in its mid to distal portion over stephy roximately a 1.7 cm segment with some mild narrowing of approximately 50%. There is less than 50% nikolas rowing in the left internal carotid artery at its origin by NASCET criteria. 2.No significant stenosis of the right internal carotid artery. 3.No evidence of any thrombus in the A1 or M1 segments. Findings telephoned to Dr. Pozo at 1900 hours.
--- NOTE | 2017-10-12 14:26 | ADD-PRG ---
DATE OF SERVICE: 10/12/2017 ADDENDUM This is an addendum to the note of Dr. Bridger Vela. Mr. Sullivan is a pleasant 72-year-old white male patient admitted with some interesting symptoms. He had a TIA workup, which was negative. He had CTA of the head and neck. CT did show hydrocephalus, b ut symptoms did not improve with lumbar puncture, therefore shunting is not indicated. In the event, his blood pressure is approaching better control and he is encouraged to follow up with his PCP upon discharge.
== END 2017-10-12 16:17 | disposition home or self-care (01) | DRG 305 ==
LOC: ERS 18:27 → IMCU/EMU 20:25 → T4-A 10-09 18:03
PROVIDERS: ADMIT Student in an Organized Health Care Education/Training Program; ATTEND Student in an Organized Health Care Education/Training Program
PROC: 009U3ZZ Drainage of Spinal Canal, Percutaneous Approach (ICD-10-PCS; principal; 2017-10-09)
PROC: B01BZZZ Fluoroscopy of Spinal Cord (ICD-10-PCS; 2017-10-09)
DX: I16.1 Hypertensive emergency (principal); G91.2 (Idiopathic) normal pressure hydrocephalus; I10 Essential (primary) hypertension; I25.10 Atherosclerotic heart disease of native coronary artery without angina pectoris; Z79.82 Long term (current) use of aspirin; Z79.899 Other long term (current) drug therapy; Z88.0 Allergy status to penicillin; Z88.2 Allergy status to sulfonamides; E78.5 Hyperlipidemia, unspecified; E11.9 Type 2 diabetes mellitus without complications; Z95.1 Presence of aortocoronary bypass graft
CPT/HCPCS: 36415; 36416; 62270; 70450; 70496; 70498; 70553; 80048; 80053; 80061; 82553; 83735; 83880; 84100; 84443; 84484; 85025; 85610; 85730; 93005; 96374; 96376; A9579; G8978-GP-CL; G8979-GP-CJ; G8987-GO-CJ; G8988-GO-CI; G8996-GN-CH; G8997-GN-CH; J0360